=== PATIENT | female | born 1970 | race Caucasian/White ===

== ENCOUNTER 2018-08-05 12:09 | Emergency (ER) | payer OTHER, BC, SELFPAY ==
[2018-08-05 12:10] VITALS: BP 156/91; PULSE 115; RESP 18; TEMP 36.1; O2SAT 97; BMI 31.3
--- NOTE | 2018-08-05 12:24 | CT_ITS ---
STUDY: CT BRAIN WITHOUT CONTRAST REASON FOR EXAM: Female, 47 years old. Laceration of the nose following a fall. RADIATION DOSAGE (If Supplied By Facility): CTDIvol = ( 44.99 ) mGy, DLP = ( 829.85 ) mGycm TECHNIQUE: Transaxial CT imaging of the brain was performed without administration of intravenous contrast material. Individualized dose optimization techniques were used for this CT. COMPARISON: None. FINDINGS: Nasal soft tissue swelling. There is evidence of a depressed fracture of the tip of the nasal bones with soft tissue in the nasal fossa most likely blood. Normal size ventricles and extra-axial spaces for the patient's age. Normal white matter tracts of the cerebral hemispheres. Normal basal ganglia and thalami. Normal brainstem. Normal cerebellum. There is no intracranial hemorrhage. There are no findings of an acute ischemic infarction. Normal visualized paranasal sinuses. CT/Brain/Head without Contrast IMPRESSION: Depressed nasal bone fracture as described. Electronically Signed: Bharathi Redding MD at 13:50 EDT Tel [phone], Service support ,
[2018-08-05] MEDS: Acetaminophen 500 MG Tablet 1000 MG PO (12:39)
--- NOTE | 2018-08-05 12:49 | ED.DCSUM_ITS ---
- ER Visit Summary Date of Service: 08/05/18 Chief Complaint: [fall, laceration] History of Present Illness: The patient is a 47 F [that presents with nasal bridge laceration after she tripped at work on some rocks. No LOC. She denies any neck pain or other injury. Her tetanus is up-to-date. She does not take any blood thinning medications. She has no other complaints.] Physical Examination: [General: The patient appears well and in no apparent distress. Patient is resting comfortably on cart. Skin: Warm, dry, no pallor noted. No rash. 2 cm linear and superficial nasal bridge laceration. Head: Normocephalic, atraumatic other than nasal bridge laceration. Neck: Supple, nontender. Eye: PERRLA, EOMI, no entrapment ENT: Moist mucus membranes, pharynx within normal limits. No dental trauma. No nasal septal hematoma. No nasal deformity. Cardiovascular: Regular Rate and Rhythm, no gallups or rubs Respiratory: Patient is in no distress, no accessory muscle use, lungs are clear to auscultation, no wheezing, rales or rhonchi Musculoskeletal: normal ROM, no deformity, no tenderness, no swelling. 2+ radial and DP pulses symmetric. GI: No tenderness to palpation, no masses appreciated. No rebound, guarding, or rigidity noted. Neurological: A&O, normal strength and sensation. GCS 15. Psychiatric: Cooperative] Test Results: [CT head; depressed nasal bone fracture] Emergency Department Course and Treatment: [Tetanus is up-to-date. Patient was given Tylenol for pain. CT head imaging shows a depressed nasal bone fracture. She will be placed on Bactrim given her amoxicillin allergy and given referral to ENT. Laceration was cleaned, irrigated, and repaired. I discussed wound care to help minimize scarring and suture removal in 5 days. Patient understands to return with any new or worsening symptoms. Patient discharged home in stable and improved condition.] Treatment Plan: [see above] Disposition: [discharge home] Impression: [Closed head injury without concussion, depressed nasal bone fracture, nasal laceration 2 cm, laceration repaired by ED physician] This note was generated with [employer] software. It may contain incorrect words, spelling, and punctuation that were not noted in review of the chart prior to signing ED Disposition - Plan for ED Patient: Disposition: Home or Assisted Living Chief Complaint: Laceration Instructions: ED Laceration All Prescriptions: Smz/Tmp Ds [Bactrim Ds] 1 tab PO BID #10 tab Referrals: Bryce Mantilla MD [Primary Care Provider] - Gilberto Byrd MD [STAFF PHYSICIAN] -
[2018-08-05 15:30] VITALS: BP 155/93; PULSE 96; RESP 16; O2SAT 98
== END 2018-08-05 15:30 | disposition home or self-care (01) ==
PROVIDERS: Emergency Provider Emergency Medicine; Family Provider Family Medicine; PCP Family Medicine
DX: S02.2XXA Fracture of nasal bones, initial encounter for closed fracture (principal); S01.21XA Laceration without foreign body of nose, initial encounter; R40.2410 Glasgow coma scale score 13-15, unspecified time; W18.09XA Striking against other object with subsequent fall, initial encounter; Y93.9 Activity, unspecified; Y92.9 Unspecified place or not applicable
CPT/HCPCS: 12011; 70450; 99283

== ENCOUNTER → 2018-10-11 09:01 | Outpatient (CLI) | payer OTHER, SELFPAY ==
[2018-08-10 09:15] VITALS: BMI 31.3
--- NOTE | 2018-10-11 09:11 | EKG12_ITS ---
Test Reason : PRE-OP Blood Pressure : / mmHG Vent. Rate : 088 BPM Atrial Rate : 088 BPM P-R Int : 164 ms QRS Dur : 088 ms QT Int : 356 ms P-R-T Axes : 047 -12 022 degrees QTc Int : 430 ms Normal sinus rhythm Normal ECG Confirmed by MELO NGO, EBONY ([id number]), tape editor RD MARTINEZ ([id number]) on 10/12/2018 4:17:04 PM Referred By: Asif Byrd Confirmed By:EBONY ALEJO MD
[2018-10-11 10:06] LABS: Anion Gap 10 (5-15); BUN 13 mg/dL (7-18); BUN/Creat Ratio 13.8 RATIO (10-20); Calcium,Total 9.3 mg/dL (8.5-10.1); Chloride 104 mmol/L (98-107); Creatinine, Serum 0.94 mg/dL (0.55-1.02); EST Glomerular Filtration Rate 67 mL/min (>60); Est Glom Filt Rate - Afr Amer 81 mL/min (>60); Glucose 98 mg/dL (74-106); Potassium 4.1 mmol/L (3.5-5.1); Sodium Level 141 mmol/L (136-145)
== END ==
PROVIDERS: Family Provider Family Medicine; PCP Family Medicine; Referring Provider Otolaryngology; Visit Provider Otolaryngology
DX: Z01.818 Encounter for other preprocedural examination (principal)
CPT/HCPCS: 36415; 80048; 93005

== ENCOUNTER 2020-12-07 12:50 | Outpatient (RCR) | payer BC, SELFPAY ==
[2018-08-10 09:15] VITALS: BMI 31.3
== END 2020-12-07 23:59 ==
LOC: IMMUN 12:50
PROVIDERS: PCP Family Medicine; Referring Provider Family Medicine; Visit Provider Family Medicine
DX: Z23 Encounter for immunization (principal)
CPT/HCPCS: 0011A; 0012A; 91301